=== PATIENT | female | born 1985 | race Caucasian/White ===

== ENCOUNTER → 2016-06-15 | Outpatient (CLI) | payer BC ==
[~2016-06-15] MED LIST: CETI5TAB5 PO; MONT4GRA PO; PRENTAB26 PO
[2016-06-18 14:54] LABS: CHLAMYDIA TRACH RNA*** NOT DETECTED (NOT DETECTED); GC (NEIS GONORRHOEAE)RNA** NOT DETECTED (NOT DETECTED)
== END | disposition home or self-care (01) ==
LOC: C.LABSPEC 15:08
PROVIDERS: ATTEND Obstetrics & Gynecology
DX: Z34.01 Encounter for supervision of normal first pregnancy, first trimester (principal)

== ENCOUNTER → 2016-12-28 | Outpatient (CLI) | payer BC, OTHER | END | disposition home or self-care (01) | LOC: C.LABSPEC 14:57 | PROVIDERS: ATTEND Obstetrics & Gynecology | DX: Z34.03 Encounter for supervision of normal first pregnancy, third trimester (principal) ==

== ENCOUNTER 2017-01-19 05:09 | Inpatient (IN) | payer OTHER ==
[~2017-01-19] VITALS: Ht 157.5 cm; Wt 85.0 kg
[2017-01-19] MEDS ORDERED: MONT4GRA PO (05:55)
[2017-01-19] MEDS ORDERED: CETI5TAB5 PO (05:55)
[2017-01-19] MEDS ORDERED: PRENTAB26 PO (05:55)
[2017-01-19 05:57] VITALS: Ht 157.5 cm; Wt 85.0 kg
[2017-01-19] MEDS ORDERED: LACTATED RINGER'S 1000ML 1,000 ML IV SCH (06:25)
[2017-01-19] MEDS ORDERED: LACTATED RINGER'S 1000ML 1,000 ML IV PRN (06:25)
[2017-01-19 06:45] LABS: HEMATOCRIT 36.7 % (37-47); MEAN CELL VOLUME 86.2 fL (80-100); MEAN PLATELET VOLUME 9.7 fL (7.4-10.4); PLATELET COUNT 261 K/uL (130-400); RED BLOOD COUNT 4.26 M/uL (4.2-5.4); WHITE BLOOD COUNT 12.95 K/uL (4.8-10.8)
[2017-01-19] MEDS ORDERED: LACTATED RINGER'S 1000ML 500 ML IV PRN (19:12)
[2017-01-19] MEDS ORDERED: OXYTOCIN 30 UNITS/500ML NSS IV PRN ×2 (19:15→22:00)
[2017-01-19] MEDS ORDERED: DIPHTHERIA/TETANUS/PERTUSSIS 0.5 ML SYR/VIAL IM. ONE (22:00)
[2017-01-19] MEDS ORDERED: BENZOCAINE 20% AER SPR 82.5 GM CAN EXT PRN (22:00)
[2017-01-19] MEDS ORDERED: SUPERCREAM 0.870 % 15GM JAR EXT PRN (22:00)
[2017-01-19] MEDS ORDERED: ACETAMINOPHEN/CODEINE 300/30MG TAB PO PRN ×2 (22:00)
[2017-01-19] MEDS ORDERED: LANOLIN OINT EXT PRN ×2 (22:00)
[2017-01-19] MEDS ORDERED: ACETAMINOPHEN 325 MG TAB PO PRN (22:00)
[2017-01-19] MEDS ORDERED: HYDROCORTISONE ACETATE 25 MG SUPP PR PRN (22:00)
[2017-01-19] MEDS ORDERED: OXYCODONE/ACETAMINOPHEN 5-325 TAB PO PRN (22:00)
[2017-01-19] MEDS: IBUPROFEN 600 MG TAB PO PRN (22:47)
[2017-01-20] VITALS (8 sets, daily range): BP systolic 103–115; BP diastolic 69–77; PULSE 64–80; TEMP 36.4–37.1; O2SAT 98–99
--- NOTE | 2017-01-20 06:56 | DELIVERY SUMMARY ---
DATE OF OPERATION: 01/19/2017 This is a 31-year-old 1, para 1, good general health, well dated. Due date is 01/23/2017. Beta strep negative, rubella immune. Blood type O positive, was admitted in active labor. Good contraction pattern, about 4+ cm dilated. She labored on her own. When she was about 7-8 cm, membranes were ruptured surgically and she was augmented with IV Pitocin. On the IV Pitocin, she had a good labor pattern and she went to full dilatation, pushed out a live infant via LEEANNE position over an intact perineum. was suctioned through the mouth and the nose. Shoulders were delivered without difficulty. Cord was clamped, cord was cut by the father and cord blood was collected. With IV Pitocin running, the placenta was removed intact. Inspection of the perineum revealed a first-degree midline laceration of the perineum and a left-sided laceration of labia minora. Both of these areas were infiltrated with local with epinephrine. A running 3-0 chromic was used to approximate the labial laceration with a continuous chromic gut suture. The perineal laceration was repaired with 2-0 Vicryl, which was anchored at the top of the defect and then run down the vaginal mucosa out to beyond the hymenal ring. A deep suture of 2-0 Vicryl used to approximate the bulbocavernosus muscle. A separate deep suture was used to approximate the perineal body and a running subcuticular suture was used to approximate the perineal skin edges. Following this, vag exam, removed all sponges in the vagina. I used a red rubber catheter to empty the bladder. Estimated blood loss was 500 mL. Apgars were deferred to the nurses. The patient tolerated the procedure in good condition. I attest to the content of the Intraoperative Record and any orders documented therein. Any exception s are noted below.
[2017-01-20 07:07] LABS: HEMATOCRIT 34.5 % (37-47)
[2017-01-20] MEDS: PRENATAL VITAMIN TAB PO SCH (07:52)
[2017-01-20] MEDS: FERROUS SULFATE 325 MG TAB PO SCH (07:52)
[2017-01-20] MEDS: DOCUSATE SODIUM 100 MG CAP PO SCH ×2 (07:52→20:28)
[2017-01-20] MEDS: IBUPROFEN 600 MG TAB PO PRN ×3 (07:57→20:28)
--- NOTE | 2017-01-20 09:22 | Progress Note ---
Subjective Jan 20, 2017. Subjective conversation w/ patient Ambulation: ambulating normally Voiding: no voiding problems Passing Gas: Yes Diet Tolerance: Regular Diet Lochia: Small Feeding Type: Breast Feeding Review of Systems Constitutional: + fever Objective Vital Signs Date Time Temp Pulse Resp B/P (MAP) Pulse Ox O2 Delivery O2 Flow Rate FiO2 01/20/17 04:35 36.7 71 18 112/70 (84) 98 Room Air 01/20/17 00:15 98 Room Air 01/20/17 00:15 36.6 74 20 112/77 (89) 98 Room Air Physical Exam General Appearance: WELL-APPEARING Abdomen: non tender Fundus: Firm, Non-Tender Extremities: no pedal edema, no calf tenderness Laboratory Results Last 24 Hours Test 01/20/17 06:45 Hemoglobin 11.5 g/dL Hematocrit 34.5 % Assessment and Plan Post- Day#: 1
[2017-01-20] MEDS ORDERED: BISACODYL 5 MG TABEC PO SCH (20:00)
[2017-01-21] MEDS ORDERED: BISACODYL 10 MG SUPP PR PRN (07:00)
[2017-01-21 08:00] VITALS: BP 99/66; PULSE 70; TEMP 36.9
[2017-01-21] MEDS: FERROUS SULFATE 325 MG TAB PO SCH (08:04)
[2017-01-21] MEDS: PRENATAL VITAMIN TAB PO SCH (08:04)
[2017-01-21] MEDS: DOCUSATE SODIUM 100 MG CAP PO SCH (08:04)
[2017-01-21] MEDS: IBUPROFEN 600 MG TAB PO PRN (08:04)
--- NOTE | 2017-01-21 08:33 | Progress Note ---
Subjective Jan 21, 2017. Subjective conversation w/ patient Ambulation: ambulating normally Voiding: no voiding problems Passing Gas: Yes Diet Tolerance: Regular Diet Lochia: Small Feeding Type: Breast Feeding Review of Systems Constitutional: + fever Objective Vital Signs Date Time Temp Pulse Resp B/P (MAP) Pulse Ox O2 Delivery O2 Flow Rate FiO2 01/20/17 23:25 98 Room Air 01/20/17 23:25 36.7 80 20 103/69 (80) 98 Room Air 01/20/17 20:20 37.1 75 18 109/73 (85) 99 Room Air 01/20/17 16:45 98 Room Air 01/20/17 16:45 36.7 73 18 109/69 (82) 98 Room Air 01/20/17 12:10 36.5 69 18 108/69 (82) 98 Room Air Physical Exam General Appearance: WELL-APPEARING Fundus: Firm, Non-Tender Extremities: no pedal edema, no calf tenderness Assessment and Plan Post- Day#: 2
--- NOTE | 2017-01-21 08:34 | Discharge Instructions ---
Discharge Instructions Date of Service Jan 21, 2017. Admission Reason for Admission: LABOR Discharge Discharge Diagnosis / Problem: active labor Discharge Goals Goal(s): Routine recovery after delivery Activity Recommendations Activity Limitations: as noted below ACTIVITY RECOMMENDATIONS: * Gradual return to full activity over the next 2-3 weeks. * No lifting - nothing heavier than baby over the next 2-3 weeks. * Do not engage in vigorous exercise, sexual activity or sports until cleared by your physician. * Do not drive or operate any motorized equipment until cleared by your physician. * You may shower/bathe daily. DIET: Resume Previous Diet If Breast-feeding: * Increase caloric intake by 500 calories, eat 3 well balanced meals, 2 high protein snacks a day and drink 6-8 8oz. glasses of fluid per day. BREAST CARE: If you are not breast feeding: * Wear a supportive bra 24 hours a day for one to two weeks. * Avoid stimulating your breasts and nipples as much as possible during the first few weeks after delivery. * When taking a shower, have the warm water hit your back, not breasts. * When your breasts feel full, apply ice packs. Usually three to four times a day helps ease the discomfort. * Take a mild pain medication (Tylenol / Motrin) when you are uncomfortable. If breast feeding: * Use breast milk to lubricate nipples. Lansinoh cream may be used for sore nipples. You do not need to remove cream prior to breast feeding. If using a different brand of cream, check the label for directions regarding removal of cream prior to nursing. * Wear a supportive bra. * If having problems with breasts or breast feeding, call a organization development consultant or your health care provider. OVER THE COUNTER MEDICATION: * For discomfort or pain, you may use Acetaminophen (Tylenol), Ibuprofen (Advil ), or Naproxen (Aleve) following the package directions. * For constipation you may use Colace following the package directions. SPECIAL CARE INSTRUCTIONS: * Vaginal rest (no tampons, douching, intercourse) until after doctor 's visit. * control as discussed with doctor. * Verbalizes understanding of car seat law as reviewed with patient nursing. * Car Seat hand-out given and reviewed with patient by nursing. * Shaken baby information reviewed with patient by nursing. Call you doctor if: * Temperature greater than or equal to 100.4 degrees F or 38.0 degrees C. Take your temperature twice daily for a week. * Bleeding becomes heavier than the heaviest part of your period - saturating a sanitary pad within an hour. * Passing large clots. * Bleeding has a foul smelling odor. * Signs and symptoms of phlebitis: leg pain, warm, red or swollen area on leg. * "Baby Blues" lasting longer than two weeks. ++ If you have had a and incision has increased pain, redness, swelling, presence of any drainage, or if the incision starts to open up. If you have any questions or concerns, call your health care practitioner at [phone]. FOLLOW-UP VISIT: Please call the office at to schedule a 6 week examination. . Instructions / Follow-Up Instructions / Follow-Up ACTIVITY RECOMMENDATIONS: * Gradual return to full activity over the next 2-3 weeks. * No lifting - nothing heavier than baby over the next 2-3 weeks. * Do not engage in vigorous exercise, sexual activity or sports until cleared by your physician. * Do not drive or operate any motorized equipment until cleared by your physician. * You may shower/bathe daily. DIET: Resume Previous Diet If Breast-feeding: * Increase caloric intake by 500 calories, eat 3 well balanced meals, 2 high protein snacks a day and drink 6-8 8oz. glasses of fluid per day. BREAST CARE: If you are not breast feeding: * Wear a supportive bra 24 hours a day for one to two weeks. * Avoid stimulating your breasts and nipples as much as possible during the first few weeks after delivery. * When taking a shower, have the warm water hit your back, not breasts. * When your breasts feel full, apply ice packs. Usually three to four times a day helps ease the discomfort. * Take a mild pain medication (Tylenol / Motrin) when you are uncomfortable. If breast feeding: * Use breast milk to lubricate nipples. Lansinoh cream may be used for sore nipples. You do not need to remove cream prior to breast feeding. If using a different brand of cream, check the label for directions regarding removal of cream prior to nursing. * Wear a supportive bra. * If having problems with breasts or breast feeding, call a organization development consultant or your health care provider. OVER THE COUNTER MEDICATION: * For discomfort or pain, you may use Acetaminophen (Tylenol), Ibuprofen (Advil ), or Naproxen (Aleve) following the package directions. * For constipation you may use Colace following the package directions. SPECIAL CARE INSTRUCTIONS: * Vaginal rest (no tampons, douching, intercourse) until after doctor 's visit. * control as discussed with doctor. * Verbalizes understanding of car seat law as reviewed with patient nursing. * Car Seat hand-out given and reviewed with patient by nursing. * Shaken baby information reviewed with patient by nursing. Call you doctor if: * Temperature greater than or equal to 100.4 degrees F or 38.0 degrees C. Take your temperature twice daily for a week. * Bleeding becomes heavier than the heaviest part of your period - saturating a sanitary pad within an hour. * Passing large clots. * Bleeding has a foul smelling odor. * Signs and symptoms of phlebitis: leg pain, warm, red or swollen area on leg. * "Baby Blues" lasting longer than two weeks. ++ If you have had a and incision has increased pain, redness, swelling, presence of any drainage, or if the incision starts to open up. If you have any questions or concerns, call your health care practitioner at [phone]. FOLLOW-UP VISIT: Please call the office at to schedule a 6 week examination. Current Hospital Diet Patient's current hospital diet: Regular Diet Discharge Diet Recommended Diet: Regular Diet Pending Studies Studies pending at discharge: no Medical Emergencies . Who to Call and When: Medical Emergencies: If at any time you feel your situation is an emergency, please call 911 immediately. . Non-Emergent Contact Non-Emergency issues call your: Reprint Sorter Call Non-Emergent contact if: temperature is above 100.5 . . "Provider Documentation" section prepared by Chuck Wilkes. . VTE Core Measure Inpt VTE Proph given/why not?: Treatment not indicated
[2017-01-21 10:31] VITALS: BP_DIAS 66; PULSE 70; TEMP 36.9
== END 2017-01-21 10:30 | disposition home or self-care (01) | DRG 775 ==
LOC: C.OPB 05:09 → C.LD 05:09 → C.OPB 06:27 → C.LD 06:27 → C.OBG 01-20 00:17 → EDSTATUS 01-23 05:09
PROVIDERS: ADMIT Obstetrics & Gynecology; ATTEND Obstetrics & Gynecology
PROC: 0UQMXZZ Repair Vulva, External Approach (ICD-10-PCS; principal; 2017-01-19)
PROC: 10E0XZZ Delivery of Products of Conception, External Approach (ICD-10-PCS; principal; 2017-01-19)
PROC: 0HQ9XZZ Repair Perineum Skin, External Approach (ICD-10-PCS; principal; 2017-01-19)
DX: O99.52 Diseases of the respiratory system complicating childbirth (principal); Z37.0 Single live birth; J45.909 Unspecified asthma, uncomplicated; Z79.899 Other long term (current) drug therapy; O70.0 First degree perineal laceration during delivery; Z3A.39 39 weeks gestation of pregnancy

== ENCOUNTER → 2017-03-08 | Outpatient (CLI) | payer OTHER | END | disposition home or self-care (01) | LOC: C.PAPS 08:09 | PROVIDERS: ATTEND Obstetrics & Gynecology | DX: Z12.4 Encounter for screening for malignant neoplasm of cervix (principal) ==

== ENCOUNTER → 2017-08-13 | Outpatient (CLI) | payer OTHER ==
--- NOTE | 2017-08-13 10:56 | DIAGNOSTIC IMAGING REPORT ---
L EXTREMITY NONVASCULAR LIMITED HISTORY: 31 years-old Female R22.9 Localized skin mass, lump, or swellingleft grion [id number] acute swelling with palpable abnormality of the left groin region COMPARISON: None available TECHNIQUE: Multiple real-time sonographic images of the left inguinal region were obtained assessing grayscale appearance and color flow FINDINGS: Small nonenlarged likely physiologic left inguinal lymph nodes are seen measuring up to 6 mm in short axis with normal fatty echogenic oh. Additionally, there is a small fat filled reducible left inguinal hernia. No focal soft tissue mass or other abnormality identified. IMPRESSION: 1. Small fat filled reducible left inguinal hernia. 2. Small likely physiologic nonenlarged left inguinal lymph nodes. The above report was generated using voice recognition software. It may contain grammatical, syntax or spelling errors. Electronically signed by: Newton Ascencio M.D. 08/13/2017 10:55 AM Dictated Date/Time: 08/13/2017 10:53 AM
== END | disposition home or self-care (01) ==
LOC: C.ULTRBC 09:56
PROVIDERS: ATTEND Physician Assistant
DX: R22.9 Localized swelling, mass and lump, unspecified (principal); K40.90 Unilateral inguinal hernia, without obstruction or gangrene, not specified as recurrent